=== PATIENT | male | born 1995 ===

== ENCOUNTER 2017-07-20 19:23 | Emergency (ER) | payer SELFPAY ==
[2017-07-20 20:15] VITALS: BP 136/67
[2017-07-20] MEDS ORDERED: BENADRYL PO ONE (23:52)
--- NOTE | 2017-07-21 00:02 | Emergency Department Report ---
HPI - General Chief Complaint: Skin Rash Time Seen by Provider: 07/20/17 22:43 - HPI HPI: The patient is a 21-year-old male who presents for evaluation of rash. The patient reports rest of the chest, abdomen, back, and proximal upper extremities. He states that the rash began one month ago has been constant since onset, progressive, currently severe, itching and worsened with scratching. He shares that he first developed a oval scaly patch on the abdomen , and subsequently smaller salmon-colored and flesh-colored patches and bumps all over. The patient denies fever, headache, neck pain, paresthesias, focal motor weakness, blurry vision, ear pain, tinnitus, chest pain, hemoptysis, dyspnea, abdominal pain, joint pain or swelling, confusion or altered mental status, or recent URI or diarrhea. ED Past Medical Hx - Past Medical History Previous Medical History?: Yes Hx Asthma: Yes - Surgical History Past Surgical History?: No - Social History Smoking Status: Current Every Day Smoker - Medications Home Medications: Home Medications Medication Instructions Recorded Confirmed Last Taken Type Amoxicillin [Amoxicillin TAB] 875 mg PO BID #20 tablet 10/14/15 Unknown Rx predniSONE [Deltasone] 30 mg PO QDAY #15 tab 10/14/15 Unknown Rx Skin Emollient [Aquaphor (Nf)] 1 applic TP BID #1 jar 07/20/17 Unknown Rx diphenhydrAMINE [Benadryl CAP] 50 mg PO Q8HR PRN #30 capsule 07/20/17 Unknown Rx ED Review of Systems ROS: Stated complaint: SKIN RASH Other details as noted in HPI Constitutional: denies: fever ENT: denies: throat or neck pain Respiratory: denies: cough, shortness of breath Cardiovascular: denies: chest pain Endocrine: denies unexplained weight loss or gain Gastrointestinal: denies: abdominal pain, nausea Genitourinary: denies: dysuria Musculoskeletal: denies: leg swelling Skin: reports rash Neurological: denies: headache Hematological/Lymphatic: denies: easy bleeding or easy bruising Psych: denies sadness or hopelessness Physical Exam - Physical Exam Vital Signs: Vital Signs 07/20/17 20:03 Temperature 99.2 F Pulse Rate 65 Respiratory 17 Rate Blood Pressure 136/67 O2 Sat by Pulse 99 Oximetry Physical Exam: General: well-nourished, well-developed, no acute distress Head: Normocephalic, atraumatic Eyes: normal sclera ENT: Mucous membranes are pink and moist Neck: trachea midline, neck supple, No neck stiffness, no cervical adenopathy Respiratory: Breath sounds equal bilaterally, no wheezing, rales, or rhonchi Cardio: S1 and S2 present, no murmurs, rubs, gallops, capillary refill is brisk Abdomen: Normoactive bowel sounds, soft abdomen, no tenderness Chest WALL/Back: No tenderness to palpation of the chest wall, no CVA tenderness with percussion Musc: No pitting edema Skin: [place]-colored [place] past present to the abdomen, multiple skin colored and [place]-colored maculopapules and nodules present to the chest, abdomen, back , bilateral proximal upper and lower extremities, no diffuse erythema or signs of cellulitis, no areas of fluctuance Neuro: no facial drooping, normal speech Psych: Normal affect ED Course Vital Signs 07/20/17 20:03 Temperature 99.2 F Pulse Rate 65 Respiratory 17 Rate Blood Pressure 136/67 O2 Sat by Pulse 99 Oximetry ED Medical Decision Making - Medical Decision Making The patient was seen and examined by myself. On initial evaluation, the patient was found to be in no distress. Examination findings are consistent with pityriasis rosea. The patient is given Benadryl for his itching. The patient was counseled regarding self limited course of pityriasis rosea. The patient was reevaluated and reported that their symptoms were markedly improved. The patient is stable for discharge with outpatient follow-up. The patient is given follow-up and return instructions. The patient expressed understanding and agreed with the plan. The patient is discharged in stable condition. Critical care attestation.: If time is entered above; I have spent that time in minutes in the direct care of this critically ill patient, excluding procedure time. ED Disposition Clinical Impression: Pityriasis rosea Disposition: DC-01 TO HOME OR SELFCARE Is pt being admited?: No Does the pt Need Aspirin: No Condition: Stable Instructions: Pityriasis rosea (ED) Referrals: PRIMARY CARE, [Primary Care Provider] - 3-5 Days [facility] [Outside] - 3-5 Days Time of Disposition: 23:53
== END 2017-07-20 23:59 | disposition home or self-care (01) ==
LOC: ED 19:23
DX: L42 Pityriasis rosea (principal); J45.909 Unspecified asthma, uncomplicated; F17.200 Nicotine dependence, unspecified, uncomplicated
CPT/HCPCS: 99282